=== PATIENT | female | born 1975 | race Caucasian/White ===

== ENCOUNTER 2017-09-17 20:35 | Inpatient (IN) | payer MEDICAID ==
[~2017-09-17] VITALS: Ht 152.4 cm; Wt 72.1 kg
[2017-09-17 20:38] VITALS: BP 124/61
[2017-09-17 22:21] LABS: BASOPHILS % (AUTO) 0.1 % (0.0-2.0); EOSINOPHILS # (AUTO) 0.1 K/uL (0-0.4); EOSINOPHILS % (AUTO) 0.5 % (0.0-4.0); HEMATOCRIT 41.2 % (36-48); HEMOGLOBIN 13.4 g/dL (12.0-16.0); LYMPHOCYTES # (AUTO) 1.5 K/uL (2.5-16.5); MEAN CORPUSCULAR HEMOGLOBIN 26 pg (27-31); MEAN CORPUSCULAR HGB CONC 33 g/dL (33-37); MEAN CORPUSCULAR VOLUME 78.5 fL (80-94); MONOCYTES # (AUTO) 1.1 K/uL (0.8-1.0); NEUTROPHILS # (AUTO) 13.4 K/uL (1.8-7.7); NEUTROPHILS % (AUTO) 82.9 % (42.2-75.2); PLATELET COUNT (AUTO) 169 K/uL (140-450); RED BLOOD CELL COUNT(AUTO) 5.25 MIL/uL (4.20-5.40); RED CELL DISTRIBUTION WIDTH 14.7 % (11.6-13.7)
[2017-09-17 22:23] LABS: APPEARANCE,URINE SL CLOUDY (CLEAR); BILIRUBIN,URINE NEGATIVE (NEGATIVE); BLOOD, URINE TRACE-I (NEGATIVE); COLOR,URINE YELLOW (YELLOW); LEUKOCYTE ESTERASE ,URINE 1+ (NEGATIVE); NITRITE, URINE NEGATIVE (NEGATIVE); UGLUCOSE NEGATIVE (NEGATIVE)
[2017-09-17 22:36] LABS: ALBUMIN 3.9 g/dL (3.4-5.0); ANION GAP 15.3 (8-16); CARBON DIOXIDE 23.5 mmol/L (21-32); CREATININE 0.9 mg/dL (0.6-1.3); POTASSIUM 3.8 mmol/L (3.5-5.1); TOTAL BILIRUBIN 0.3 mg/dL (0.0-1.0)
[2017-09-17 22:37] LABS: WHITE BLOOD COUNT (AUTO) 16.1 K/uL (4.8-10.8)
[2017-09-17 22:38] LABS: LYMPHOCYTES % (AUTO) 9.5 % (20.5-51.1)
[2017-09-17 22:39] LABS: RBC,URINE 0-5 (RARE) /HPF (0-5)
[2017-09-18] MEDS ORDERED: MORPHINE SULFATE 2 MG/ML SYR IVP ONE (01:05)
[2017-09-18] MEDS ORDERED: PIPERACILLIN/TAZOBACTAM 3.375 GM in DEXTROSE 5% 50 ML IV ONE (01:05)
[2017-09-18] MEDS ORDERED: NACL 0.9% 2,000 ML IV ONE (01:05)
[2017-09-18] MEDS ORDERED: NACL 0.9% 1,000 ML IV SCH (01:17)
[2017-09-18] MEDS ORDERED: ONDANSETRON 4 MG/2 ML VIAL IM/IVP PRN (01:20)
[2017-09-18] MEDS ORDERED: PIPERACILLIN/TAZOBACTAM 3.375 GM VIAL IV ONE (01:20)
[2017-09-18] MEDS ORDERED: ACETAMINOPHEN 325 MG TAB PO PRN (01:20)
[2017-09-18] MEDS ORDERED: DOCUSATE SODIUM 100 MG GELCAP PO PRN (01:20)
[2017-09-18 01:55] LABS: CHOL/HDL RATIO 3.7 (1-4.5); FREE T4 (FREE THYROXINE) 0.91 ng/dL (0.76-1.46); MAGNESIUM 1.6 mg/dL (1.8-2.4); THYROID STIMULATING HORMONE 0.26 uIU/mL (0.34-3.74)
[2017-09-18] MEDS ORDERED: DEXT 5% / NACL 0.45% 1,000 ML IV ONE (01:55)
[2017-09-18 01:56] LABS: BARBITURATE, URINE NEG. ng/ml (NEG <=200); BENZODIAZEPINE, URINE NEG. ng/mL (NEG <=200); CANNABINOID, URINE NEG. ng/mL (NEG <=50); COCAINE, URINE NEG. ng/mL (NEG <=300); OPIATE, URINE NEG. ng/mL (NEG <=2000); PHENCYCLIDINE SCREEN,URINE NEG. ng/mL (NEG <=25)
[2017-09-18 02:01] LABS: PROTHROMBIN TIME 10.9 secs (10.8-13.4)
[2017-09-18 02:05] VITALS: BP 131/75
[2017-09-18] MEDS ORDERED: MAGNESIUM OXIDE 400 MG TAB PO ONE (06:00)
[2017-09-18 06:44] LABS: BASOPHILS % (AUTO) 0.2 % (0.0-2.0); EOSINOPHILS # (AUTO) 0.2 K/uL (0-0.4); EOSINOPHILS % (AUTO) 1.6 % (0.0-4.0); HEMATOCRIT 39.6 % (36-48); HEMOGLOBIN 12.9 g/dL (12.0-16.0); LYMPHOCYTES # (AUTO) 2.3 K/uL (2.5-16.5); LYMPHOCYTES % (AUTO) 19.8 % (20.5-51.1); MEAN CORPUSCULAR HEMOGLOBIN 26 pg (27-31); MEAN CORPUSCULAR HGB CONC 33 g/dL (33-37); MEAN CORPUSCULAR VOLUME 79.4 fL (80-94); MONOCYTES # (AUTO) 0.8 K/uL (0.8-1.0); MONOCYTES % (AUTO) 6.9 % (1.7-9.3); NEUTROPHILS # (AUTO) 8.3 K/uL (1.8-7.7); NEUTROPHILS % (AUTO) 71.5 % (42.2-75.2); PLATELET COUNT (AUTO) 167 K/uL (140-450); RED BLOOD CELL COUNT(AUTO) 4.99 MIL/uL (4.20-5.40); RED CELL DISTRIBUTION WIDTH 14.5 % (11.6-13.7); WHITE BLOOD COUNT (AUTO) 11.6 K/uL (4.8-10.8)
[2017-09-18 07:26] LABS: ANION GAP 11.4 (8-16); CARBON DIOXIDE 28.9 mmol/L (21-32); CREATININE 0.7 mg/dL (0.6-1.3); POTASSIUM 3.3 mmol/L (3.5-5.1)
[2017-09-18 07:38] LABS: MAGNESIUM 1.9 mg/dL (1.8-2.4); PHOSPHORUS 3.8 mg/dL (2.5-4.9)
[2017-09-18 08:00] VITALS: BP 104/77
[2017-09-18] MEDS ORDERED: PIPERACILLIN/TAZOBACTAM 3.375 GM in DEXTROSE 5% 50 ML IV SCH (08:00)
[2017-09-18] MEDS: LACTOBACILLUS RHAMNOSUS GG 1 EACH CAP PO SCH (08:46)
[2017-09-18] MEDS: PIPER/TAZO 3.375GM/D5W PREMIX 50 ML IV SCH ×2 (13:53→18:27)
[2017-09-18 16:00] VITALS: BP 115/66
[2017-09-18] MEDS ORDERED: POTASSIUM CHLORIDE 10 MEQ TABER PO SCH ×2 (16:00→21:00)
[2017-09-18] MEDS ORDERED: KETOROLAC 15 MG/ML VIAL IVP SCH (18:05)
[2017-09-18] MEDS ORDERED: GLYCOPYRROLATE 0.2 MG/ML VIAL ONE (22:15)
[2017-09-18] MEDS ORDERED: DEXAMETHASONE 4 MG/ML VIAL ONE (22:15)
[2017-09-18] MEDS ORDERED: SUCCINYLCHOLINE CHLORIDE 200 MG/10 ML VIAL IVP ONE (22:15)
[2017-09-18] MEDS ORDERED: PHENYLEPHRINE 10 MG/ML VIAL ONE (22:15)
[2017-09-18] MEDS ORDERED: PROPOFOL 200 MG/20 ML VIAL IV ONE (22:15)
[2017-09-18] MEDS ORDERED: SEVOFLURANE 250 ML BTL INH ONE (22:15)
[2017-09-18] MEDS ORDERED: ONDANSETRON 4 MG/2 ML VIAL ONE (22:15)
[2017-09-18] MEDS ORDERED: ROCURONIUM 50 MG/5 ML VIAL IV ONE (22:15)
[2017-09-18] MEDS ORDERED: BUPIVACAINE-MPF/EPI 0.25% 30 ML VIAL INJ ONE (22:20)
[2017-09-18] MEDS ORDERED: MIDAZOLAM 2 MG/2 ML VIAL ONE (22:27)
[2017-09-18] MEDS ORDERED: MEPERIDINE 50 MG/ML SYR ONE (22:27)
[2017-09-18] MEDS ORDERED: fentaNYL 0.05 MG/ML VIAL ONE (22:27)
[2017-09-18] MEDS: LACTATED RINGERS 1,000 ML IV SCH (22:56)
[2017-09-18] MEDS ORDERED: ONDANSETRON 4 MG/2 ML VIAL IVP PRN (23:00)
[2017-09-18] MEDS ORDERED: diphenhydrAMINE 50 MG/ML VIAL IVP PRN (23:00)
[2017-09-18] MEDS ORDERED: HYDROmorphone 1 MG/ML AMP IVP PRN (23:00)
[2017-09-18] MEDS ORDERED: MEPERIDINE 25 MG/ML SYR IVP PRN (23:00)
[2017-09-18] MEDS ORDERED: POTASSIUM CHL 20MEQ/D5-NS 1,000 ML IV SCH (23:40)
[2017-09-18] MEDS: HYDROmorphone PFS 2 MG/ML SYR ONE (23:54)
[2017-09-19] MEDS: HYDROmorphone PFS 2 MG/ML SYR ONE (00:04)
[2017-09-19] MEDS: MORPHINE SULFATE 2 MG/ML SYR IVP PRN ×2 (03:14→08:26)
[2017-09-19] MEDS ORDERED: LACTULOSE 20 GM/30 ML UDC PO SCH (05:30)
[2017-09-19] MEDS: PIPER/TAZO 3.375GM/D5W PREMIX 50 ML IV SCH ×5 (05:59→23:59)
[2017-09-19 06:47] LABS: BASOPHILS % (AUTO) 0.1 % (0.0-2.0); HEMATOCRIT 38.7 % (36-48); HEMOGLOBIN 12.7 g/dL (12.0-16.0); LYMPHOCYTES # (AUTO) 0.7 K/uL (2.5-16.5); LYMPHOCYTES % (AUTO) 5.8 % (20.5-51.1); MEAN CORPUSCULAR HEMOGLOBIN 26 pg (27-31); MEAN CORPUSCULAR HGB CONC 33 g/dL (33-37); MEAN CORPUSCULAR VOLUME 79.1 fL (80-94); MONOCYTES # (AUTO) 0.2 K/uL (0.8-1.0); MONOCYTES % (AUTO) 1.4 % (1.7-9.3); NEUTROPHILS # (AUTO) 10.5 K/uL (1.8-7.7); NEUTROPHILS % (AUTO) 92.7 % (42.2-75.2); PLATELET COUNT (AUTO) 165 K/uL (140-450); RED BLOOD CELL COUNT(AUTO) 4.89 MIL/uL (4.20-5.40); RED CELL DISTRIBUTION WIDTH 14.8 % (11.6-13.7); WHITE BLOOD COUNT (AUTO) 11.4 K/uL (4.8-10.8)
[2017-09-19] MEDS: LACTATED RINGERS 1,000 ML IV SCH (07:16)
[2017-09-19 07:17] LABS: ANION GAP 13.5 (8-16); CARBON DIOXIDE 25.3 mmol/L (21-32); CREATININE 0.7 mg/dL (0.6-1.3); POTASSIUM 3.8 mmol/L (3.5-5.1)
[2017-09-19 07:41] LABS: T4 (THYROXINE) 6.2 ug/dL (4.5-12.0)
[2017-09-19 07:42] LABS: MAGNESIUM 1.8 mg/dL (1.8-2.4); PHOSPHORUS 3.1 mg/dL (2.5-4.9)
[2017-09-19 08:00] VITALS: BP 108/60
[2017-09-19] MEDS: LACTOBACILLUS RHAMNOSUS GG 1 EACH CAP PO SCH (08:23)
[2017-09-19 11:14] LABS: ALBUMIN 3.4 g/dL (3.4-5.0); BILIRUBIN,DIRECT 0.1 mg/dL (0.0-0.3); TOTAL BILIRUBIN 0.3 mg/dL (0.0-1.0)
[2017-09-19] MEDS ORDERED: SIMETHICONE 80 MG TAB.CHEW PO SCH (13:45)
[2017-09-19 16:00] VITALS: BP 125/75
[2017-09-19] MEDS: HYDROcodone/APAP 5/325 MG 1 TAB TAB PO PRN (16:45)
[2017-09-19] MEDS: NACL 0.9% 1,000 ML IV SCH ×2 (18:24→23:59)
[2017-09-20] MEDS: HYDROcodone/APAP 5/325 MG 1 TAB TAB PO PRN ×2 (00:08→09:07)
[2017-09-20] MEDS: PIPER/TAZO 3.375GM/D5W PREMIX 50 ML IV SCH (05:09)
[2017-09-20 06:51] LABS: BASOPHILS % (AUTO) 0.3 % (0.0-2.0); EOSINOPHILS # (AUTO) 0.1 K/uL (0-0.4); EOSINOPHILS % (AUTO) 0.6 % (0.0-4.0); HEMATOCRIT 35.2 % (36-48); HEMOGLOBIN 11.4 g/dL (12.0-16.0); LYMPHOCYTES # (AUTO) 2.1 K/uL (2.5-16.5); LYMPHOCYTES % (AUTO) 23.2 % (20.5-51.1); MEAN CORPUSCULAR HEMOGLOBIN 26 pg (27-31); MEAN CORPUSCULAR HGB CONC 32 g/dL (33-37); MEAN CORPUSCULAR VOLUME 79.6 fL (80-94); MONOCYTES # (AUTO) 0.8 K/uL (0.8-1.0); MONOCYTES % (AUTO) 8.2 % (1.7-9.3); NEUTROPHILS # (AUTO) 6.2 K/uL (1.8-7.7); NEUTROPHILS % (AUTO) 67.7 % (42.2-75.2); PLATELET COUNT (AUTO) 158 K/uL (140-450); RED BLOOD CELL COUNT(AUTO) 4.43 MIL/uL (4.20-5.40); WHITE BLOOD COUNT (AUTO) 9.2 K/uL (4.8-10.8)
[2017-09-20 06:58] LABS: ANION GAP 9.9 (8-16); CREATININE 0.8 mg/dL (0.6-1.3); POTASSIUM 3.9 mmol/L (3.5-5.1)
[2017-09-20] MEDS ORDERED: SIMETHICONE 80 MG TAB.CHEW PO SCH (07:00)
[2017-09-20 07:14] LABS: PHOSPHORUS 3.7 mg/dL (2.5-4.9)
[2017-09-20 08:00] VITALS: BP 117/77
[2017-09-20] MEDS: LACTOBACILLUS RHAMNOSUS GG 1 EACH CAP PO SCH (09:07)
[2017-09-20] MEDS ORDERED: ACET-9525 PO (09:08)
[2017-09-20] MEDS ORDERED: DOCU-299 PO (09:08)
== END 2017-09-20 16:05 | disposition home or self-care (01) | DRG 710 ==
LOC: MED 20:35 → MTU 09-18 01:23
PROVIDERS: ADMIT General Practice; ATTEND General Practice
PROC: 0DTJ4ZZ Resection of Appendix, Percutaneous Endoscopic Approach (ICD-10-PCS; principal; 2017-09-18 21:30)
DX: A41.9 Sepsis, unspecified organism (principal); E83.42 Hypomagnesemia; K35.80 Unspecified acute appendicitis; N39.0 Urinary tract infection, site not specified; K44.9 Diaphragmatic hernia without obstruction or gangrene; E87.6 Hypokalemia; Z82.49 Family history of ischemic heart disease and other diseases of the circulatory system; Z83.3 Family history of diabetes mellitus
CPT/HCPCS: 36415; 76705; 80048; 80053; 80076; 80305; 81001; 82140; 82150; 82374; 83036; 83605; 83690; 83735; 83880; 84100; 84134; 84436; 84439; 84443; 84479; 84484; 84703; 85025; 85610; 85730; 87081; 87086; 93005; 96365; 96375; 99285; J0330; J1100; J1170; J1885; J2175; J2250; J2270; J2370; J2405; J2543; J2704; J3010; J3490; J7030; J7060; Q0092